=== PATIENT | female | born 1990 ===

== ENCOUNTER 2024-06-01 10:35 | Emergency (ER) | payer MEDICAID, SELFPAY ==
[2024-06-01 10:56] VITALS: BP 117/64; PULSE 70; RESP 18; TEMP 36.3; O2SAT 100
[2024-06-01 12:13] VITALS: BP 120/90; PULSE 67; RESP 18; O2SAT 100
--- NOTE | 2024-06-01 12:16 | ED.FEMALEGU ---
HPI - Female Genitourinary General Chief complaint: Vaginal Bleeding Stated complaint: 05/14, vag bleeding Time Seen by Provider: 06/01/24 12:11 Source: patient History of Present Illness HPI Narrative: 33 years old female came to the ED from home by private car complaining of severe vaginal bleeding is started within the last few hours prior to arrival to the emergency room. She denies any fever or chills or nausea or vomiting, lightheadedness or dizziness, feeling diffuse abdominal discomfort. Patient is status post May 14, discharged home on May 18, vaginal bleeding stopped completely on May 20. Today patient started having severe vaginal bleeding. She denies any sexual activities in the meantime. Patient not on any medication at home. Related Data Allergies Allergy/AdvReac Type Severity Reaction Status Date / Time ibuprofen Allergy Mild Hives Verified 06/01/24 11:00 Review of Systems Review of Systems: All systems reviewed & are unremarkable except as noted in HPI and below Exam Narrative: General appearance: Well-developed, well-nourished Skin: Normal color Head: Normocephalic, nontraumatic Eyes: Clear conjunctiva ENT: Oropharynx normal, ears normal, nose normal Neck: Supple, nontender Chest and respiratory: Airway patent, no respiratory distress, no accessory muscle use Heart: Regular rate/rhythm Abdomen: Soft, mild diffuse tenderness , no organomegaly, quiet bowel sounds Musculoskeletal: Normal range of motion, nontender back Neurologic: Alert and oriented ?3, 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 No b) Course Consultations Consultation #1: Dr. Gaitan OBGYN at [facility] Send patient to [address] [place] [address] for physical examination and pelvic ultrasound Date: 06/01/24 Time: 15:34 Vital Signs Vital signs: Vital Signs Temperature 36.3 C L 06/01/24 10:56 Pulse Rate 70 06/01/24 10:56 Respiratory Rate 18 06/01/24 10:56 Blood Pressure 117/64 06/01/24 10:56 Pulse Oximetry 100 06/01/24 10:56 Oxygen Delivery Room Air 06/01/24 10:56 Temperature 36.3 C L 06/01/24 10:56 Pulse Rate 67 06/01/24 12:13 Respiratory Rate 18 06/01/24 12:13 Blood Pressure 120/90 06/01/24 12:13 Pulse Oximetry 100 06/01/24 12:13 Oxygen Delivery Room Air 06/01/24 10:56 MDM - Female Genitourinary MDM Narrative Medical decision making narrative: Patient came to the ED with severe vaginal bleeding few hours prior to arrival Vital signs are stable Physical examination showing Differential diagnosis post endometritis, dysfunctional uterine bleeding, anemia Blood workup today includes CBC, CMP showed hemoglobin of 9.9, hematocrit 31.9 platelet 446 otherwise within normal limit CT abdomen and pelvis with IV contrast showed Prominent endometrium with fluid within it is likely related to recent status and/or stage in the menstrual cycle. Correlate clinically for any evidence of endometritis. No other significant findings. No definite acute abnormality seen. Dr. Gaitan OBGYNargis at [facility] requested that patient can drive herself to his facility [address] [facility] for physical examination and possible ultrasound to rule out the possibility of retained conception products. Lab Data 06/01/24 12:30 06/01/24 12:30 Labs: Lab Results 06/01/24 Range/Units 12:30 WBC 6.8 (4.5-10.0) K/mm3 RBC 3.65 L (4.2-5.4) M/mm3 Hgb 9.9 L (12.0-15.0) g/dL Hct 31.9 L (37.0-47.0) % MCV 87.4 (80-100) fl MCH 27.1 (26-34) pg MCHC 31.0 L (32-36) g/dl RDW 15.8 H (11.5-14.5) % Plt Count 446 H (150-375) k/mm3 MPV 9.4 (7.4-10.4) fl Immature Gran % (Auto) 0.1 (0-0.5) % Neut % (Auto) 63.8 (45.5-73.1) % Lymph % (Auto) 23.5 (18.3-44.2) % [place] % (Auto) 9.1 H (2.6-8.5) % Eos % (Auto) 2.5 (0-4.4) % Baso % (Auto) 1.0 (0.2-1.2) % Lymph # (Auto) 1.59 (0.9-3.2) K/mm3 [place] # (Auto) 0.6 (0.1-0.6) K/mm3 Eos # (Auto) 0.2 (0-0.3) K/mm3 Baso # (Auto) 0.1 (0.0-0.1) K/mm3 Abs Immat Gran (auto) 0.01 (0.00-0.031) K/mm3 Absolute Neuts (auto) 4.3 (1.3-6.7) K/mm3 Absolute Nucleated RBC 0.000 (0.0-0.012) K/mm3 Nucleated RBC % 0.0 (0.0-0.2) % Sodium 138 (137-145) mmol/L Potassium 4.4 (3.4-5.0) mmol/L Chloride 105 (98-107) mmol/L Carbon Dioxide 25 (22-30) mmol/L Anion Gap 8 (4-12) mmol/L BUN 16 (7-17) mg/dL Creatinine 0.77 (0.7-1.0) mg/dL Estim Creat Clear Calc 102 ml/min Estimated GFR > 60 (59 - ) Glucose 83 (65-110) mg/dL Calcium 8.6 (8.4-10.2) mg/dL Total Bilirubin 0.3 (0.2-1.3) mg/dL AST 19 (14-36) U/L ALT 18 (6-35) U/L Alkaline Phosphatase 58 (38-126) U/L Total Protein 7.0 (6.3-8.2) g/dL Albumin 4.1 (3.5-5.1) g/dL Blood Type O Negative Antibody Screen Pending Discharge Plan Discharge Clinical Impression: DUB (dysfunctional uterine bleeding) Patient Disposition: Acute Care Hospital Condition: Stable Instructions: Abnormal (Dysfunctional) Uterine Bleeding (ED) Additional Instructions: Go to [address] [place] [address] [address] Arnie Yousif for physical examination and pelvic ultrasound today. Patient Language: Swedish Follow-up/Referrals: PHYSICIAN NOT ON STAFF,NONSTAFF [Non-Staff] -
[2024-06-01 12:40] LABS: Basophils Absolute Auto 0.1 K/mm3 (0.0-0.1); Eosinophils Absolute Auto 0.2 K/mm3 (0-0.3); Eosinophils Percent Auto 2.5 % (0-4.4); Hematocrit 31.9 % (37.0-47.0); Hemoglobin 9.9 g/dL (12.0-15.0); Immature Granulocyte Absolute 0.01 K/mm3 (0.00-0.031); Immature Granulocyte Percent A 0.1 % (0-0.5); Lymphocytes Absolute Auto 1.59 K/mm3 (0.9-3.2); Lymphocytes Percent Auto 23.5 % (18.3-44.2); Mean Corpuscular Hemoglobin 27.1 pg (26-34); Mean Corpuscular Volume 87.4 fl (80-100); Mean Platelet Volume 9.4 fl (7.4-10.4); Monocytes Absolute Auto 0.6 K/mm3 (0.1-0.6); Monocytes Percent Auto 9.1 % (2.6-8.5); Neutrophils Absolute Auto 4.3 K/mm3 (1.3-6.7); Neutrophils Percent Auto 63.8 % (45.5-73.1); Platelet Count Result 446 k/mm3 (150-375); Red Blood Count 3.65 M/mm3 (4.2-5.4); Red Cell Distribution Width 15.8 % (11.5-14.5); White Blood Count 6.8 K/mm3 (4.5-10.0)
[2024-06-01 12:47] LABS: Alanine Aminotransferase 18 U/L (6-35); Albumin Level 4.1 g/dL (3.5-5.1); Alkaline Phosphatase 58 U/L (38-126); Anion Gap 8 mmol/L (4-12); Aspartate Amino Transferase 19 U/L (14-36); Bilirubin,Total 0.3 mg/dL (0.2-1.3); Blood Urea Nitrogen 16 mg/dL (7-17); Calcium 8.6 mg/dL (8.4-10.2); Carbon Dioxide 25 mmol/L (22-30); Chloride 105 mmol/L (98-107); Estimated CRCL calculation 102 ml/min; Estimated Glomerular Filt Rate > 60; Glucose 83 mg/dL (65-110); Potassium 4.4 mmol/L (3.4-5.0); Sodium 138 mmol/L (137-145)
[2024-06-01] MEDS: SODIUM CHLORIDE 0.9% IV 1,000 ML 999 ML IV CONT (12:58)
--- NOTE | 2024-06-01 15:23 | PC.NURSE ---
Per patient's MyChart, patient last received Rhogam 04/18.
[2024-06-01 15:52] VITALS: BP 134/79; PULSE 60; O2SAT 100
[2024-06-01 15:53] VITALS: BP 134/79; PULSE 60; O2SAT 100
[2024-06-01 16:24] VITALS: BP 125/57; PULSE 60; RESP 18; O2SAT 100
== END 2024-06-01 16:17 | disposition short-term general hospital (02) ==
PROVIDERS: Emergency Provider Emergency Medicine
DX: O72.2 Delayed and secondary postpartum hemorrhage (principal)
CPT/HCPCS: 36415; 74177; 80053; 85025; 86850; 86880; 86900; 86901; 96360; 99284; J7030; Q9967